=== PATIENT | female | born 1995 | race Caucasian/White ===

== ENCOUNTER 2016-12-25 07:49 | Emergency (ER) | payer OTHER ==
[2016-12-25 08:03] VITALS: BP 121/71
[2016-12-25] MEDS ORDERED: Ibuprofen TAB* 600 MG PO ONE (08:11)
--- NOTE | 2016-12-25 08:42 | RAD ---
INDICATION: Right ankle injury COMPARISON: None TECHNIQUE: AP, lateral, and oblique views were obtained. FINDINGS: There is no acute fracture. There is lateral soft tissue swelling. IMPRESSION: LATERAL SOFT TISSUE SWELLING. NO ACUTE FRACTURE.
--- NOTE | 2017-01-02 11:44 | UC ---
Lower Extremity/Ankle HPI - HPI Summary HPI Summary: 21 yo female c/o R ankle pain and selling s/p slip and fall down a hill last evening. Pain mmediate but worse over the night. Weightbearing painful. Thinks she hyperextended the ankle. C/o pain ant ankle and lat malleolus. No prox tib fib tenderness. No toe or distal foot pain. - History of Current Complaint Chief Complaint: UCLowerExtremity Stated Complaint: RT ANKLE COMPLAINT Time Seen by Provider: 12/25/16 07:58 Hx Obtained From: Patient Hx Last Menstrual Period: 12/22/16 Pain Intensity: 3 Pain Scale Used: 0-10 Numeric - Allergies/Home Medications Allergies/Adverse Reactions: Allergies Allergy/AdvReac Type Severity Reaction Status Date / Time Sulfa Antibiotics Allergy See Comment Verified 12/25/16 07:57 Home Medications: Home Medications Norethin Acet & Estrad-Fe [ 1-20 mg-Mcg(24)] 1 tab PO DAILY 12/25/16 [History Confirmed 12/25/16] Paroxetine Mesylate [Pexeva] 30 mg PO DAILY 12/25/16 [History Confirmed 12/25/16 ] PMH/Surg Hx/FS Hx/Imm Hx Previously Healthy: Yes - Surgical History Surgical History: None - Family History Known Family History: Positive: Hypertension - Social History Alcohol Use: None Substance Use Type: None Smoking Status (MU): Never Smoked Tobacco - Immunization History Most Recent Influenza Vaccination: Not the 2016/2017 Season Review of Systems Constitutional: Negative Skin: Other - sweling right lat ankle. Eyes: Negative ENT: Negative Respiratory: Negative Cardiovascular: Negative Genitourinary: Negative Motor: Other Neurovascular: Other Musculoskeletal: Arthralgia - Right ant and lat ankle pain and swellintg. No p/ d. Painful to ambulate. Neurological: Negative Psychological: Negative Is Patient Immunocompromised?: No All Other Systems Reviewed And Are Negative: Yes Physical Exam Triage Information Reviewed: Yes Appearance: Well-Nourished, Pain Distress - pain with examination or attempt weight bear Vital Signs: Initial Vital Signs Temp 98.2 F 12/25/16 07:56 Pulse 104 12/25/16 07:56 Resp 16 12/25/16 07:56 BP 121/71 12/25/16 07:56 Pulse Ox 100 12/25/16 07:56 Vital Signs Reviewed: Yes Eye Exam: Normal - grossly normal ENT Exam: Normal - grossly normal Neck exam: Normal Neck: Positive: Nontender Respiratory Exam: Normal - no tachypnea no dyspnea Cardiovascular Exam: Normal Abdominal Exam: Normal Musculoskeletal Exam: Other - R lat mal swelling and tenderness. Tenderness includes fibulo-talo lig area, also extensds just posterior to malleolus. Dp/ Pt 2+ No distal tenderness (point) appreciated. CR < 2 sec x 5 digits. No prox tib fib tenderness. Neurological Exam: Normal Psychological Exam: Normal Skin Exam: Normal Lower Extremity Course/Dx - Course Course Of Treatment: No new issues while in [facility]. REviewed sana xray report with Ms. Joseph. D/w pt the importatnce of f/u and pressure offloading. She was given crutches in the [facility]. Also fitted for cam boot. When able to bear weight better she may use this but crutches untl then. Gelco splint / hugo for comfort. Questions as posed answered to the best of my ability. - Differential Dx/Diagnosis Provider Diagnoses: acute right ankle sprain Discharge - Discharge Plan Condition: Stable Disposition: HOME Prescriptions: Ibuprofen TAB* [Motrin TAB* 600 MG] 600 mg PO Q8H PRN #30 tab PRN Reason: Pain Patient Education Materials: Ankle Sprain (ED) Referrals: Non Staff,Doctor [Primary Care Provider] - Lily Hancock MD [Medical Doctor] - Additional Instructions: Follow up Orthopedic surgeon within one week. Minimize weight bearing until you are feeling better, and able to bear weight. Follow up with your primary care physician, per routine. Please call your doctor to let him / her know of your injury. Seek medical attention for worse or new problems. Crutches to help with offloading. Gelco splint - to use as as needed for ankle support and coolness (when you are not using CAM).
== END 2016-12-25 09:12 | disposition home or self-care (01) ==
LOC: UCCORT 07:49
DX: S93.401A Sprain of unspecified ligament of right ankle, initial encounter (principal); W17.81XA Fall down embankment (hill), initial encounter; Y93.9 Activity, unspecified; Y92.9 Unspecified place or not applicable; Z88.2 Allergy status to sulfonamides
CPT/HCPCS: 99214; A9270-GY; G0463